=== PATIENT | female | born 1960 | race Caucasian/White ===

== ENCOUNTER → 2019-06-25 | Outpatient (CLI) | payer OTHER | LOC: M.NUC 06-15 10:05 | DX: M53.86 Other specified dorsopathies, lumbar region (principal) ==

== ENCOUNTER → 2019-07-23 | Outpatient (CLI) | payer OTHER | LOC: M.ULTRA 07-14 15:00 | PROVIDERS: ATTEND Family Medicine | DX: N20.0 Calculus of kidney (principal) ==